=== PATIENT | male | born 1995 | race Caucasian/White ===

== ENCOUNTER → 2016-12-18 | Outpatient (CLI) | payer MEDICAID ==
[2016-12-18 13:09] VITALS: BP 126/73
== END ==
LOC: MHUC 10:30
PROVIDERS: ATTEND Physician Assistant
DX: J11.1 Influenza due to unidentified influenza virus with other respiratory manifestations (principal); R05 Cough
CPT/HCPCS: 99203

== ENCOUNTER → 2017-02-20 | Outpatient (CLI) | payer MEDICAID ==
[~2017-02-20] MED LIST: BENZ-22 PO
--- NOTE | 2017-02-20 16:56 | Diagnostic Imaging Report ---
INDICATION: Pain COMPARISON: None FINDINGS: Three views of the right hand are obtained. No acute fracture, malalignment or osseous destructive process is seen. IMPRESSION: Negative right hand. Dictated by: Dictated on workstation # [id number]
== END ==
LOC: RAD 15:05
PROVIDERS: ATTEND Physician Assistant
DX: M79.641 Pain in right hand (principal)
CPT/HCPCS: 73130